=== PATIENT | female | born 1965 | race Hispanic/Latino ===

== ENCOUNTER 2020-06-16 02:43 | Emergency (ER) | payer BC ==
[~2020-06-16] VITALS: Ht 157.5 cm; Wt 85.7 kg
== END 2020-06-16 03:09 | disposition home or self-care (01) ==
LOC: ER 02:48
DX: R00.2 Palpitations (principal); T50.Z95A Adverse effect of other vaccines and biological substances, initial encounter; I10 Essential (primary) hypertension; E11.9 Type 2 diabetes mellitus without complications; E78.5 Hyperlipidemia, unspecified; R94.31 Abnormal electrocardiogram [ECG] [EKG]
CPT/HCPCS: 93005; 99282